=== PATIENT | male | born 1980 | race Caucasian/White ===

== ENCOUNTER 2019-07-06 22:03 | Emergency (ER) | payer MEDICAID ==
[~2019-07-06] VITALS: Ht 180.3 cm; Wt 94.1 kg
--- NOTE | 2019-07-06 22:19 | NUR ---
MD AT BEDSIDE TO ASSESS PT
[2019-07-06 22:21] VITALS: BP 133/98
--- NOTE | 2019-07-06 22:36 | NUR ---
THIS IS A 39Y M THAT COMES IN FROM HOME FOR R FACIAL NUMBNESS/ TINGLING. PT STS HE WAS SEEN AT [facility] FOR THIS AND THEY DID A CT AND BLOOD WORK AND FOUND NOTHING. PT A/O X4 NADN AMB TO ROOM WITH STEADY GAIT. PT CONNECTED TO MONITORING, VSS.
--- NOTE | 2019-07-06 23:26 | NUR ---
Discharge instructions given. All questions and concerns addressed. Patient ambulatory with a steady gait. Belongings with patient.
== END 2019-07-06 23:28 | disposition home or self-care (01) ==
LOC: ED 22:52
DX: R20.8 Other disturbances of skin sensation (principal); R20.2 Paresthesia of skin; R43.1 Parosmia
CPT/HCPCS: 93005; 99283

== ENCOUNTER 2019-07-09 15:32 | Emergency (ER) | payer MEDICAID ==
[~2019-07-09] VITALS: Ht 180.3 cm; Wt 97.0 kg
[2019-07-09 15:37] VITALS: BP_DIAS 109
[2019-07-09] MEDS ORDERED: MECLIZINE CHEWABLE 25 MG TAB PO ONE (16:30)
[2019-07-09] MEDS ORDERED: MECLIZINE CHEWABLE 25 MG TAB ONE (16:30)
[2019-07-09 17:04] LABS: BASOPHILS # (AUTO) 0.03 x10^3/uL (0-0.1); BASOPHILS % (AUTO) 0 % (0-1); EOSINOPHILS # (AUTO) 0.06 x10^3/uL (0-0.4); EOSINOPHILS % (AUTO) 1 % (1-7); LYMPHOCYTES # (AUTO) 1.87 x10^3/uL (1-3.4); LYMPHOCYTES % (AUTO) 20 % (22-44); MD NO; MEAN CORPUSCULAR HEMOGLOBIN 30.5 pg (27.5-34.5); MEAN CORPUSCULAR HGB CONC 33.8 g/dL (33.2-36.2); MEAN CORPUSCULAR VOLUME 90.3 fL (81-97); MEAN PLATELET VOLUME 7.3 fL (7.4-10.4); MONOCYTES # (AUTO) 0.65 x10^3/uL (0.2-0.8); MONOCYTES % (AUTO) 7 % (2-9); NEUTROPHILS % (AUTO) 72 % (42-75); PLATELET COUNT 215 x10^3/uL (130-400); RED BLOOD COUNT 5.88 x10^6/uL (4.38-5.82); RED CELL DISTRIBUTION WIDTH 13.3 % (9.4-14.8)
[2019-07-09 17:11] LABS: ANION GAP 7 mmol/L (5-15); CALCIUM 9.2 mg/dL (8.5-10.1); CHLORIDE 109 mmol/L (98-107)
[2019-07-09 17:18] LABS: CREATININE 0.96 mg/dL (0.7-1.3); TROPONIN I < 0.015 ng/mL (0.000-0.045)
[2019-07-09 17:33] VITALS: BP_SYST 154
--- NOTE | 2019-07-09 17:48 | NUR ---
PT ABLE TO SIT UP ON EDGE OF BED. STATES EARLIER HE WAS NOT ABLE TO DO THAT. AWAITING RE-EVAL
--- NOTE | 2019-07-09 18:57 | NUR ---
Report received from RADHAMES Olvera. This RN to assume care. All test results back; awaiting recheck on patient.
== END 2019-07-09 20:14 | disposition home or self-care (01) ==
LOC: ED 20:00
DX: R42 Dizziness and giddiness (principal); R51 Headache
CPT/HCPCS: 36415; 70450; 80048; 82040; 84484; 85025; 93005; 99285